=== PATIENT | male | born 1965 | race African-American/Black ===

== ENCOUNTER 2016-04-01 21:20 | Emergency (ER) | payer MEDICAID, SELFPAY ==
[~2016-04-01] VITALS: Ht 172.7 cm; Wt 79.4 kg
[~2016-04-01 21:20] MED LIST: BACTRIM DS TAB1 EAC1 ORAL; IBUPROFEN800 MG ORAL; NORCO 5-325 TA1 EACH ORAL
[2016-04-01 21:36] VITALS: BP 134/77
--- NOTE | 2016-04-01 21:41 | Emergency Room Report ---
History of Present Illness General Chief Complaint: Overdose Source: EMS Present Illness HPI Patient is a 50-year-old male who presented by ambulance after altered level of consciousness. The patient reportedly markedly agitated and had been given IM Versed prior to arrival. Patient reportedly had been combative he was initially awake and responsive. History markedly limited by patient's mental status. Allergies: Coded Allergies: No Known Allergies (Unverified , 12/07/11) Patient History Past Medical History: see triage record Reviewed Nursing Documentation: PMH: Agreed, PSxH: Agreed Nursing Documentation-PMH Past Medical History: No Stated History Review of Systems All Other Systems: limited - by ams Physical Exam Vital Signs Date Time Temp Pulse Resp B/P Pulse Ox O2 Delivery O2 Flow Rate FiO2 04/01/16 21:20 98.2 106 16 136/98 99 Room Air Sp02 EP Interpretation: reviewed, normal General Appearance: other - poor alertness Head: atraumatic Eyes: bilateral eye other - pinpoint pupils ENT: normal ENT inspection, hearing grossly normal, normal voice Neck: normal inspection, full range of motion, supple, no bony tend Respiratory: normal inspection, lungs clear, normal breath sounds, no respiratory distress, no retraction, no wheezing Cardiovascular #1: regular rate, rhythm, no edema Gastrointestinal: normal inspection, normal bowel sounds, non tender, soft, no guarding, no hernia Genitourinary: no CVA tenderness Psychiatric: normal inspection, judgement/insight normal, mood/affect normal Skin: normal inspection, normal color, no rash Medical Decision Making Diagnostic Impression: Primary Impression: Substance abuse Additional Impression: Drug overdose ER Course Patient presented for altered mental status. Differential diagnosis included but was not limited to ischemic stroke, subarachnoid hemorrhage, hypoglycemia, spinal cord injury, neurodegenerative disorder, urinary tract infection, hypoxemia.Because of complexity of patient's case laboratory testing and imaging studies were ordered. The patient was noted to have initially pinpoint pupils adequate respiratory rate. Patient was started on supplemental oxygen. He was not given Narcan do to prior agitation.Patient was observed in the emergency department and gradual improvement in his mental status. The patient was noted to have increased alertness after observation and was able ambulatory without assistance. The patient stated that he wanted to go home. The patient denied any suicidal thoughts and stated he did not know why he was in emergency department. The patient stated that he was not hallucinating and had a good plan for self care.The patient is advised to follow up with primary care doctor in 1-2 days. Patient is advised to return if any worsening condition or if any changes in status that are concerning. Labs Test 04/01/16 21:44 White Blood Count 11.7 K/UL (4.8-10.8) Red Blood Count 4.09 M/UL (4.70-6.10) Hemoglobin 13.2 G/DL (14.2-18.0) Hematocrit 39.7 % (42.0-52.0) Mean Corpuscular Volume 97 FL (80-99) Mean Corpuscular Hemoglobin 32.4 PG (27.0-31.0) Mean Corpuscular Hemoglobin Concent 33.4 G/DL (32.0-36.0) Red Cell Distribution Width 12.8 % (11.6-14.8) Platelet Count 275 K/UL (150-450) Mean Platelet Volume 6.5 FL (6.5-10.1) Neutrophils (%) (Auto) 86.2 % (45.0-75.0) Lymphocytes (%) (Auto) 6.3 % (20.0-45.0) Monocytes (%) (Auto) 6.3 % (1.0-10.0) Eosinophils (%) (Auto) 0.3 % (0.0-3.0) Basophils (%) (Auto) 0.9 % (0.0-2.0) Sodium Level 140 mEQ/L (135-145) Potassium Level 3.7 mEQ/L (3.4-4.9) Chloride Level 98 mEQ/L (98-107) Carbon Dioxide Level 25 mEQ/L (20-30) Anion Gap 17 (5-15) Blood Urea Nitrogen 20 mg/dL (7-23) Creatinine 1.1 mg/dL (0.7-1.2) Estimat Glomerular Filtration Rate > 60 mL/min (>60) Glucose Level 178 mg/dL (74-106) Calcium Level 9.1 mg/dL (8.6-10.2) Total Bilirubin 0.2 mg/dL (0.0-1.2) Aspartate Amino Transf (AST/SGOT) 28 U/L (5-40) Alanine Aminotransferase (ALT/SGPT) 17 U/L (3-41) Alkaline Phosphatase 88 U/L (40-129) Troponin I < 0.30 ng/mL (<=0.30) Total Protein 6.5 g/dL (6.6-8.7) Albumin 4.0 g/dL (3.5-5.2) Globulin 2.5 g/dL Albumin/Globulin Ratio 1.6 (1.0-2.7) Urine Opiates Screen Negative (NEGATIVE) Urine Barbiturates Screen Negative (NEGATIVE) Phencyclidine (PCP) Screen Positive (NEGATIVE) Urine Amphetamines Screen Negative (NEGATIVE) Urine Benzodiazepines Screen Positive (NEGATIVE) Urine Cocaine Screen Negative (NEGATIVE) Urine Marijuana (THC) Screen Positive (NEGATIVE) Last Vital Signs Date Time Temp Pulse Resp B/P Pulse Ox O2 Delivery O2 Flow Rate FiO2 04/01/16 21:20 98.2 106 16 136/98 99 Room Air Status: improved Disposition: HOME, SELF-CARE Condition: Stable Referrals: [facility]REFERRING (PCP) Derrikc Mcnally Apr 01, 2016 21:41
[2016-04-01 22:14] LABS: MEAN CORPUSCULAR HEMOGLOBIN 32.4 PG (27.0-31.0); MEAN CORPUSCULAR HGB CONC 33.4 G/DL (32.0-36.0); MEAN CORPUSCULAR VOLUME 97 FL (80-99); MEAN PLATELET VOLUME 6.5 FL (6.5-10.1); PLATELET COUNT 275 K/UL (150-450); RED BLOOD COUNT 4.09 M/UL (4.70-6.10); RED CELL DISTRIBUTION WIDTH 12.8 % (11.6-14.8); WHITE BLOOD COUNT 11.7 K/UL (4.8-10.8)
[2016-04-01 22:27] LABS: BASOPHILS % (AUTO) 0.9 % (0.0-2.0); EOSINOPHILS % (AUTO) 0.3 % (0.0-3.0); LYMPHOCYTES % (AUTO) 6.3 % (20.0-45.0); MONOCYTES % (AUTO) 6.3 % (1.0-10.0); NEUTROPHILS % (AUTO) 86.2 % (45.0-75.0)
[2016-04-01 22:30] LABS: TROPONIN I < 0.30 ng/mL (<=0.30)
[2016-04-01 22:33] LABS: ALANINE AMINOTRANSFERASE 17 U/L (3-41); ALBUMIN/GLOBULIN RATIO 1.6 (1.0-2.7); ANION GAP 17 (5-15); ASPARTATE AMINO TRANSFERASE 28 U/L (5-40); CALCIUM 9.1 mg/dL (8.6-10.2); CARBON DIOXIDE 25 mEQ/L (20-30); CHLORIDE 98 mEQ/L (98-107); CREATININE 1.1 mg/dL (0.7-1.2); GLOMERULAR FILTRATION RATE > 60 mL/min (>60); HEMOLYSIS 7; POTASSIUM 3.7 mEQ/L (3.4-4.9); SODIUM 140 mEQ/L (135-145); TOTAL PROTEIN 6.5 g/dL (6.6-8.7)
[2016-04-01 23:35] VITALS: BP 116/62
[2016-04-02 01:15] VITALS: BP_SYST 128; BP_DIAS 65; BP_DIAS 76
--- NOTE | 2016-04-02 09:22 | Diagnostic Imaging Report ---
Indications: Altered mental status Technique: Continuous helical CT imaging of the brain was performed with automatic exposure control on a Siemens sensation [address] scanner. Axial and coronal images were reconstructed at 5 mm slice thickness and interval. CTDI volume(s): 70 mGy Total DLP: 1416 mGy-cm Findings: Comparison: None. Motion artifact substantially degrades all images.. No evidence of mass or hemorrhage, other attenuation abnormality, mass effect, midline shift, hydrocephalus or increased intracranial pressure. Bone window images are unremarkable. Polypoid soft tissue densities bilateral maxillary sinuses. Remainder visualized paranasal sinuses and mastoid air cells are clear. IMPRESSION: Bilateral maxillary sinus polyps versus retention cysts Otherwise negative noncontrast CT scan of the brain , limited as described. This correlates with [facility] preliminary report. The CT scanner at [facility] is accredited by the [employer] and the scans are performed using protocols designed to limit radiation exposure to as low as reasonably achievable to attain images of sufficient resolution adequate for diagnostic evaluation.
--- NOTE | 2016-04-02 11:54 | Diagnostic Imaging Report ---
Indication: Shortness of breath Technique: Single portable AP view of the chest. Findings: Comparison: None. Of optimal inspiration limits evaluation. Apparent nodular soft tissue prominence in the regions of the azygos vein, right hilum. The bones and extra pulmonary soft tissues, cardiomediastinal silhouette, pulmonary vasculature and parenchyma, and pleural surfaces are otherwise unremarkable. IMPRESSION: Soft tissue prominence right paratracheal mediastinum and right hilum may simply represent prominent vasculature. Superimposed masses not excludable. Upright PA and lateral chest radiographs with better inspiratory effort and optimal technique recommended for more complete evaluation. Otherwise negative portable AP chest. Written discrepancy report sent to emergency Department via PACS at time of this dictation.
--- NOTE | 2016-04-05 15:53 | Cardiology Report ---
APPROVED REPORT EKG Measurement Heart [id number] Normal sinus rhythm Normal ECG
== END 2016-04-02 01:15 | disposition home or self-care (01) ==
LOC: EDBD 21:20 → EMR 21:31
DX: F19.10 Other psychoactive substance abuse, uncomplicated (principal); T50.901A Poisoning by unspecified drugs, medicaments and biological substances, accidental (unintentional), initial encounter; R41.82 Altered mental status, unspecified; Y92.89 Other specified places as the place of occurrence of the external cause
CPT/HCPCS: 36415; 70450; 71010; 80053; 80300; 84484; 85025; 93005; 96360

== ENCOUNTER 2017-09-22 11:26 | Emergency (ER) | payer MEDICAID ==
[~2017-09-22] VITALS: Ht 175.3 cm; Wt 81.6 kg
[2017-09-22 12:14] VITALS: BP 131/88
[2017-09-22] MEDS ORDERED: Norco 5mg/325mg tab ORAL ONE (12:15)
--- NOTE | 2017-09-22 13:56 | Diagnostic Imaging Report ---
Indication: Pain right ankle ankle pain/trauma Comparison: None Findings: 3 views of the right ankle obtained. There is irregularity of the posterior malleolus with apparent periosteal elevation. This appears to be a fracture but to be old. Correlate clinically. There is no malalignment the findings seen. Some soft tissue swelling is present along the lateral part of the ankle. IMPRESSION: Irregularity of the posterior malleolus possibly due to a fracture. This is age indeterminate. Suggest repeat or CT
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
--- NOTE | 2017-09-22 13:59 | Diagnostic Imaging Report ---
Indication: Pain Knee pain/trauma 3 views of the right knee were obtained. Findings: No acute fracture, malalignment, or joint effusion are identified. Joint space is relatively well-maintained. Impression: Negative for acute findings.
--- NOTE | 2017-09-22 14:09 | Diagnostic Imaging Report ---
Indication: Chest pain and trauma. Comparison: None Findings: 4 views of the right chest wall was obtained for evaluation of the ribs. There is unusual lateral displacement of costal cartilage along the lower lateral aspect of the ribs. The bones appear intact. There is no pneumothorax or evidence of a pleural effusion. IMPRESSION: Suspected costochondral cartilage injury with displacement involving the right lower ribs 8 and 9. Correlate clinically.
[2017-09-22] MEDS ORDERED: IBUPROFEN600 MG ORAL (14:14)
[2017-09-22] MEDS ORDERED: NORCO 5-325 TA1 EACH ORAL (14:14)
[2017-09-22 14:23] VITALS: BP 131/88
== END 2017-09-22 14:24 | disposition home or self-care (01) ==
LOC: EMR 12:15
DX: S82.891A Other fracture of right lower leg, initial encounter for closed fracture (principal); S83.91XA Sprain of unspecified site of right knee, initial encounter; S20.219A Contusion of unspecified front wall of thorax, initial encounter; Y04.2XXA Assault by strike against or bumped into by another person, initial encounter; Y92.9 Unspecified place or not applicable
CPT/HCPCS: 99284

== ENCOUNTER 2018-05-30 03:50 | Emergency (ER) | payer MEDICAID ==
[~2018-05-30] VITALS: Ht 175.3 cm; Wt 86.2 kg
[~2018-05-30 03:50] MED LIST changes: +IBUPROFEN600 MG ORAL
[2018-05-30] MEDS ORDERED: NKM (04:04)
[2018-05-30 04:09] VITALS: BP 136/92
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
[2018-05-30] MEDS ORDERED: Acetaminophen 500mg (ES) tab ORAL ONE (04:15)
--- NOTE | 2018-05-30 04:20 | NUR ---
ED Nurse Note: pt went to ct with tech
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
--- NOTE | 2018-05-30 04:36 | NUR ---
ED Nurse Note: pt went back from ct with tech.
[2018-05-30] MEDS ORDERED: ACETAMINOPHEN500 M3 ORAL (05:37)
[2018-05-30 05:40] VITALS: BP 136/92
--- NOTE | 2018-05-30 05:40 | NUR ---
ER DISCHARGE NOTE: Patient is cleared to be discharged per ERMD, pt is aox4, on room air, with stable vital signs. pt was given dc and prescription instructions, pt was able to verbalize understanding, pt id band removed without complications. pt is able to ambulate with steady gait. pt took all belongings.
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
== END 2018-05-30 05:40 | disposition home or self-care (01) ==
LOC: EMR 05:00
DX: S00.93XA Contusion of unspecified part of head, initial encounter (principal); Y04.2XXA Assault by strike against or bumped into by another person, initial encounter; Y92.9 Unspecified place or not applicable; H91.92 Unspecified hearing loss, left ear
CPT/HCPCS: 70450; 99284

== ENCOUNTER 2019-12-27 06:37 | Inpatient (IN) | payer MEDICAID ==
[~2019-12-27] VITALS: Ht 175.3 cm; Wt 79.2 kg
[2019-12-27] VITALS (7 sets, daily range): BP systolic 124–145; BP diastolic 61–95
[~2019-12-27 06:37] MED LIST changes: +ACETAMINOPHEN500 M3 ORAL; +NKM
--- NOTE | 2019-12-27 07:15 | NUR ---
ED Nurse Note: Patient from home and walked in due to dizziness x 2 weeks. Pt states that he is "dehydrated.". Denies CP upon ED arrival. AAO x4, follows commands with non labored breathing.
--- NOTE | 2019-12-27 07:24 | Emergency Room Report ---
History of Present Illness General Chief Complaint: Dizziness Source: Patient Present Illness HPI 54-year-old male, no past medical history no surgical history reports over the past 2 weeks has been feeling lightheaded, like he is going to pass out, he denies any aggravating relieving factors severity is moderate, intermittent denies any chest pain shortness of breath no nausea no vomiting, patient thinks he is dehydrated he also reports having hard stools, patient presents for evaluation and treatment no family history of early sudden cardiac Allergies: Coded Allergies: No Known Allergies (Unverified , 12/07/11) COVID-19 Screening Contact w/high risk pt: No Experienced COVID-19 symptoms?: No COVID-19 Testing performed CHEMICAL INSTRUMENTATION OFFICER: No Patient History Past Medical History: see triage record Reviewed Nursing Documentation: PMH: Agreed; PSxH: Agreed Nursing Documentation-PMH Past Medical History: No Stated History Review of Systems All Other Systems: negative except mentioned in HPI Physical Exam Vital Signs Date Time Temp Pulse Resp B/P (MAP) Pulse Ox O2 Delivery O2 Flow Rate FiO2 12/27/19 06:55 98.4 74 20 142/102 (115) 98 Sp02 EP Interpretation: reviewed, normal General Appearance: well appearing, no apparent distress, alert Head: normocephalic, atraumatic Eyes: bilateral eye PERRL, bilateral eye EOMI ENT: uvula midline, moist mucus membranes Neck: supple, thyroid normal, supple/symm/no masses Respiratory: lungs clear, no respiratory distress, no retraction, no accessory muscle use Cardiovascular #1: normal peripheral pulses, regular rate, rhythm, no edema, no gallop, no murmur Gastrointestinal: non tender, soft, no guarding, no rebound Musculoskeletal: normal inspection Neurologic: alert, oriented x3 Psychiatric: mood/affect normal Skin: no rash, warm/dry Medical Decision Making Diagnostic Impression: Primary Impression: Pre-syncope Additional Impressions: Dehydration Colitis ER Course 54-year-old male presents with vague complaints of presyncopal symptoms, differential includes arrhythmia, syncope, dehydration Troponin negative, x-ray negative EKG negative, patient rehydrated with 2 L of fluids patient felt better additionally patient found to have a colitis on CT patient will be started on ceftriaxone, metronidazole Patient admitted to Dr. Enriquez Laboratory Tests Test 12/27/19 07:19 White Blood Count 6.1 K/UL (4.8-10.8) Red Blood Count 4.41 M/UL (4.70-6.10) L Hemoglobin 14.5 G/DL (14.2-18.0) Hematocrit 41.0 % (42.0-52.0) L Mean Corpuscular Volume 93 FL (80-99) Mean Corpuscular Hemoglobin 32.8 PG (27.0-31.0) H Mean Corpuscular Hemoglobin Concent 35.2 G/DL (32.0-36.0) Red Cell Distribution Width 11.7 % (11.6-14.8) Platelet Count 299 K/UL (150-450) Mean Platelet Volume 6.1 FL (6.5-10.1) L Neutrophils (%) (Auto) 61.4 % (45.0-75.0) Lymphocytes (%) (Auto) 24.1 % (20.0-45.0) Monocytes (%) (Auto) 9.0 % (1.0-10.0) Eosinophils (%) (Auto) 2.8 % (0.0-3.0) Basophils (%) (Auto) 2.7 % (0.0-2.0) H Sodium Level 135 MMOL/L (136-145) L Potassium Level 4.0 MMOL/L (3.5-5.1) Chloride Level 101 MMOL/L (98-107) Carbon Dioxide Level 29 MMOL/L (21-32) Anion Gap 6 mmol/L (5-15) Blood Urea Nitrogen 13 mg/dL (7-18) Creatinine 1.0 MG/DL (0.55-1.30) Estimated Glomerular Filtration Rate > 60 mL/min (>60) Glucose Level 110 MG/DL (74-106) H Calcium Level 8.6 MG/DL (8.5-10.1) Total Bilirubin 0.4 MG/DL (0.2-1.0) Aspartate Amino Transferase (AST) 36 U/L (15-37) Alanine Aminotransferase (ALT) 40 U/L (12-78) Alkaline Phosphatase 86 U/L (46-116) Troponin I 0.000 ng/mL (0.000-0.056) Pro-B-Type Natriuretic Peptide 27 pg/mL (0-125) Total Protein 6.1 G/DL (6.4-8.2) L Albumin 3.3 G/DL (3.4-5.0) L Globulin 2.8 g/dL Albumin/Globulin Ratio 1.2 (1.0-2.7) Lipase 186 U/L (73-393) EKG Diagnostic Results Troponin ordered: Yes When was troponin ordered?: Dec 27, 2019 - 708 EKG Time: 07:22 EP Interpretation: NSR, rate 64, QTc 431, no acute ST elevations, normal axis Rhythm Strip Diag. Results Rhythm Strip Time: 07:23 EP Interpretation: yes Rate: 71 Rhythm: NSR, no PVC's, no ectopy Chest X-Ray Diagnostic Results Chest X-Ray Diagnostic Results : Chest X-Ray Ordered: Yes # of Views/Limited/Complete: 1 View Indication: Chest Pain EP Interpretation: Yes Interpretation: no consolidation, no effusion, no pneumothorax, no acute cardiopulmonary disease Impression: No acute disease Electronically Signed by: Antonio Vivar MD Last Vital Signs Date Time Temp Pulse Resp B/P (MAP) Pulse Ox O2 Delivery O2 Flow Rate FiO2 12/27/19 06:55 98.4 74 20 142/102 (115) 98 Disposition: ADMITTED INPATIENT Condition: Stable Referrals: NOT CHOSEN IPA/,REFERRING (PCP) Antonio Vivar MD Dec 27, 2019 07:24
--- NOTE | 2019-12-27 07:24 | NUR ---
ED Nurse Note: Collected blood then sent. Patient unable to provide urine at this time.
--- NOTE | 2019-12-27 07:35 | NUR ---
ED Nurse Note: Rdaiology tech Carlos at the bed side for CXR.
[2019-12-27 07:55] LABS: ANION GAP 6 mmol/L (5-15); BLOOD UREA NITROGEN 13 mg/dL (7-18); CALCIUM 8.6 MG/DL (8.5-10.1); CARBON DIOXIDE 29 MMOL/L (21-32); CHLORIDE 101 MMOL/L (98-107); SODIUM 135 MMOL/L (136-145)
[2019-12-27 08:02] LABS: BASOPHILS % (AUTO) 2.7 % (0.0-2.0); EOSINOPHILS % (AUTO) 2.8 % (0.0-3.0); HEMOGLOBIN 14.5 G/DL (14.2-18.0); LYMPHOCYTES % (AUTO) 24.1 % (20.0-45.0); MEAN CORPUSCULAR VOLUME 93 FL (80-99); NEUTROPHILS % (AUTO) 61.4 % (45.0-75.0); PLATELET COUNT 299 K/UL (150-450); RED BLOOD COUNT 4.41 M/UL (4.70-6.10); RED CELL DISTRIBUTION WIDTH 11.7 % (11.6-14.8); WHITE BLOOD COUNT 6.1 K/UL (4.8-10.8)
[2019-12-27 08:06] LABS: ALANINE AMINOTRANSFERASE 40 U/L (12-78); ALBUMIN 3.3 G/DL (3.4-5.0); ALBUMIN/GLOBULIN RATIO 1.2 (1.0-2.7); ALKALINE PHOSPHATASE 86 U/L (46-116); ASPARTATE AMINO TRANSFERASE 36 U/L (15-37); BILIRUBIN,TOTAL 0.4 MG/DL (0.2-1.0)
--- NOTE | 2019-12-27 08:16 | Diagnostic Imaging Report ---
EXAM: CT Chest Without Intravenous Contrast CLINICAL HISTORY: ABD PAIN TECHNIQUE: Axial computed tomography images of the chest without intravenous contrast. CTDI is 5.3 mGy and DLP is 359.5 mGy-cm. One or more of the following dose reduction techniques were used: automated exposure control, adjustment of the mA and/or kV according to patient size, use of iterative reconstruction technique. COMPARISON: No relevant prior studies available. FINDINGS: Lungs: Calcified granulomas in the right hilum and right mediastinum. Pleural space: Unremarkable. No pneumothorax. No significant effusion. Heart: Unremarkable. No cardiomegaly. No significant pericardial effusion. Bones/joints: Unremarkable. No acute fracture. No dislocation. Soft tissues: Unremarkable. Vasculature: Unremarkable. No thoracic aortic aneurysm. Lymph nodes: Unremarkable. No enlarged lymph nodes. IMPRESSION: No acute findings in the chest. EXAM: CT Abdomen and Pelvis Without Intravenous Contrast CLINICAL HISTORY: ABD PAIN TECHNIQUE: Axial computed tomography images of the abdomen and pelvis without intravenous contrast. CTDI is 5.3 mGy and DLP is 359.5 mGy-cm. One or more of the following dose reduction techniques were used: automated exposure control, adjustment of the mA and/or kV according to patient size, use of iterative reconstruction technique. COMPARISON: No relevant prior studies available. FINDINGS: Lung bases: Unremarkable. No mass. No consolidation. ABDOMEN: Liver: Unremarkable. Gallbladder and bile ducts: Unremarkable. No calcified stones. No ductal dilation. Pancreas: Unremarkable. No ductal dilation. Spleen: Unremarkable. No splenomegaly. Adrenals: Unremarkable. No mass. Kidneys and ureters: Unremarkable. No obstructing stones. No hydronephrosis. Stomach and bowel: There is mural thickening of the colon diffusely consistent with colitis. PELVIS: Appendix: No findings to suggest acute appendicitis. Bladder: Unremarkable. No stones. Reproductive: Unremarkable as visualized. ABDOMEN and PELVIS: Intraperitoneal space: Unremarkable. No free air. No significant fluid collection. Bones/joints: No acute fracture. No dislocation. Soft tissues: Unremarkable. Vasculature: Unremarkable. No abdominal aortic aneurysm. Lymph nodes: Unremarkable. No enlarged lymph nodes. IMPRESSION: Mild colitis.
[2019-12-27] MEDS ORDERED: metroNIDAZOLE 500mg tab ORAL ONE (08:45)
[2019-12-27] MEDS ORDERED: cefTRIAXone 1 GM in NS 55 ML IVPB ONE (08:45)
--- NOTE | 2019-12-27 09:27 | NUR ---
ED Nurse Note: Collected urine then sent.
[2019-12-27 09:37] LABS: APPEARANCE,URINE CLEAR; BILIRUBIN, URINE NEGATIVE (NEGATIVE); COLOR,URINE PALE YELLOW; GLUCOSE, URINE (UA) NEGATIVE (NEGATIVE); KETONES,URINE NEGATIVE (NEGATIVE); LEUKOCYTE ESTERASE ,URINE NEGATIVE (NEGATIVE); NITRITE,URINE NEGATIVE (NEGATIVE); PH,URINE 8 (4.5-8.0); PROTEIN,URINE NEGATIVE (NEGATIVE); UROBILINOGEN,URINE NORMAL MG/DL (0.0-1.0)
--- NOTE | 2019-12-27 15:04 | NUR ---
ED Nurse Note: Report given to Elliot NAGY of telemetry unit.
--- NOTE | 2019-12-27 15:10 | NUR ---
NURSE NOTES: Pt. received from YAKOV Cervantes. Pt. arrived via gurney, ambulated with steady gait to bed, AAOx4, on room air, breathing even and unlabored, no active complaints of pain, no indications of respiratory distress. Vital signs stable, skin intact, pt. able to perform ADLs independently. IV left ac 18g intact and patent, saline locked. Belongings list checked and accounted for. Bed low and locked, side rails x2 up, and call light in reach. Dr. Enriquez notified of patients arrival and orders received.
[2019-12-27] MEDS ORDERED: Acetaminophen 500mg (ES) tab ORAL PRN (15:30)
[2019-12-27] MEDS: D5NS 1,000 ML IV SCH (15:40)
--- NOTE | 2019-12-27 15:45 | NUR ---
NURSE NOTES: Pt. complaints of constipation, Dr. Enriquez notified and received orders for laxatives. Will follow up with plan of care.
[2019-12-27] MEDS ORDERED: Miralax 17gm pkt ORAL PRN (16:00)
--- NOTE | 2019-12-27 16:19 | Cardiology Report ---
APPROVED REPORT EKG Measurement Heart [id number] <Conclusion> Normal sinus rhythm Normal ECG
--- NOTE | 2019-12-27 16:27 | Diagnostic Imaging Report ---
Indication: Cough Technique: One view of the chest Comparison: 04/01/2016 Findings: Lungs and pleural spaces are clear. Heart size is normal. No significant change Impression: No acute process
[2019-12-27] MEDS: Piperacillin/Tazobactam 3.375 GM in NS 110 ML IVPB SCH (17:19)
--- NOTE | 2019-12-27 19:20 | NUR ---
NURSE NOTES: Pt. with loose bowel movement, stool sample collected and set to lab.
[2019-12-27] MEDS: Heparin 5000 units/ml inj SUBQ SCH (20:12)
--- NOTE | 2019-12-27 21:42 | General Progress Note ---
Subjective Allergies: Coded Allergies: No Known Allergies (Unverified , 12/07/11) Objective Last 24 Hour Vital Signs Date Time Temp Pulse Resp B/P (MAP) Pulse Ox O2 Delivery O2 Flow Rate FiO2 12/27/19 21:00 Room Air 12/27/19 16:00 98.2 79 19 131/61 (84) 98 12/27/19 16:00 70 12/27/19 15:22 Room Air 12/27/19 15:13 98.2 75 16 127/80 99 Room Air 12/27/19 13:45 97.7 81 17 130/87 100 Room Air 12/27/19 11:35 98.6 79 15 130/87 100 Room Air 12/27/19 09:25 98.2 85 16 144/93 99 Room Air 12/27/19 09:00 97.9 82 17 145/90 99 Room Air 12/27/19 07:20 74 20 Room Air 12/27/19 07:20 98.4 78 20 124/95 98 12/27/19 06:55 98.4 74 20 142/102 (115) 98 Laboratory Tests 12/27/19 07:19: White Blood Count 6.1, Red Blood Count 4.41L, Hemoglobin 14.5, Hematocrit 41.0L, Mean Corpuscular Volume 93, Mean Corpuscular Hemoglobin 32.8H, Mean Corpuscular Hemoglobin Concent 35.2, Red Cell Distribution Width 11.7, Platelet Count 299, Mean Platelet Volume 6.1L, Neutrophils (%) (Auto) 61.4, Lymphocytes (%) (Auto) 24.1, Monocytes (%) (Auto) 9.0, Eosinophils (%) (Auto) 2.8, Basophils (%) (Auto) 2.7H, Sodium Level 135L, Potassium Level 4.0, Chloride Level 101, Carbon Dioxide Level 29, Anion Gap 6, Blood Urea Nitrogen 13, Creatinine 1.0, Estimat Glomerular Filtration Rate > 60, Glucose Level 110H, Calcium Level 8.6, Total Bilirubin 0.4, Aspartate Amino Transf (AST/SGOT) 36, Alanine Aminotransferase (ALT/SGPT) 40, Alkaline Phosphatase 86, Troponin I 0.000, Pro-B-Type Natriuretic Peptide 27, Total Protein 6.1L, Albumin 3.3L, Globulin 2.8, Albumin/Globulin Ratio 1.2, Lipase 186 12/27/19 09:25: Urine Color Pale yellow, Urine Appearance Clear, Urine pH 8, Urine Specific [place] 1.010, Urine Protein Negative, Urine Glucose (UA) Negative, Urine Ketones Negative, Urine Blood Negative, Urine Nitrite Negative, Urine Bilirubin Negative, Urine Urobilinogen Normal, Urine Leukocyte Esterase Negative, Urine Opiates Screen Negative, Urine Barbiturates Screen Negative, Phencyclidine (PCP) Screen PositiveH, Urine Amphetamines Screen Negative, Urine Benzodiazepines Screen Negative, Urine Cocaine Screen Negative, Urine Marijuana (THC) Screen PositiveH Height (Feet): 5 Height (Inches): 9.00 Weight (Pounds): 180 Assessment/Plan Assessment/Plan: Assessment Constipation vague abdominal complaints minimal anemia sycope vs presyncope Recommendations laxatives push po outpatient colonoscopy Thank you MD Ajith Borden Payman MD Dec 27, 2019 21:42
--- NOTE | 2019-12-27 23:30 | Consultation ---
DATE OF CONSULTATION: 12/27/2019 GASTROLOGY CONSULTATION CHIEF COMPLAINT: I was asked to see this patient by Dr. Shelton Enriquez for evaluation of abdominal complaints. HISTORY OF PRESENT ILLNESS: The patient is a 54-year-old man without any significant past medical history, who comes into the hospital due to feeling that he is passing out or feeling lightheaded or dizzy. The patient also states he has had some difficulty having bowel movements. He says that the stools alternate between hard and soft. He has had no nausea, vomiting, or diarrhea. He has never had a colonoscopy. CT scan of the abdomen and pelvis shows some mild thickening in the colon. PAST MEDICAL HISTORY: Otherwise negative. FAMILY HISTORY: Noncontributory. SOCIAL HISTORY: The patient does not smoke or drink alcohol. He is single. MEDICATIONS: None. REVIEW OF SYSTEMS: Otherwise negative. PHYSICAL EXAMINATION: GENERAL: A well-developed, well-nourished man, seen in his room. HEENT: Normocephalic and atraumatic. Sclerae anicteric. Oropharynx is clear. NECK: Supple. CHEST: Clear to auscultation. CARDIAC: Exam revealed a regular rate. ABDOMEN: Soft and nontender without organomegaly. EXTREMITIES: No edema. LABORATORY DATA: Noted. ASSESSMENT: This patient presents with lightheaded and presyncopal symptoms, which can be addressed from a cardiac standpoint. His abdominal complaints are somewhat vague and it appeared he just may have some degree of constipation. However, he has not had w/u since anemic; and therefore, evaluation should be done once the patient has been cleared from a cardiovascular standpoint. The colonoscopy can be done as an outpatient to assess this. In the meantime, a bowel regimen should be given to help the patient to have regular bowel movements. RECOMMENDATIONS: Per above discussion and per orders in the chart. Thank you for asking me to participate in the care of this patient. Aurelio Canseco M.D. DR: RODRÍGUEZ JOB#: [id number] CC: MURPHY
[2019-12-28] VITALS: BP 124/81
[2019-12-28] MEDS: Piperacillin/Tazobactam 3.375 GM in NS 110 ML IVPB SCH ×3 (02:05→18:00)
[2019-12-28] MEDS: D5NS 1,000 ML IV SCH ×3 (02:05→21:33)
--- NOTE | 2019-12-28 02:56 | NUR ---
NURSE HAND-OFF REPORT: Important Events on Shift:[pt. with bowel movement, c. diff is negative] Patient Status: sleeping Diet: regular Pending Orders: [na] Pending Results/Labs:bmp cbc Pending MD notification:pt. concerned with gastric problems and wants a work up Latest Vital Signs: Temperature 97.9 , Pulse 76 , B/P 124 /81 , Respiratory Rate 18 , O2 SAT 97 , Room Air, O2 Flow Rate . Vital Sign Comment: stable EKG Rhythm: Sinus Rhythm Rhythm change?: N MD Notified?: - MD Response: Latest [place] Fall Score: 30 Fall Risk: Medium Risk Safety Measures: Call light Within Reach, Bed Alarm , Side Rails Side Rails x2, Bed position Low and Locked. Fall Precautions: Patient Fall Education Report given to YAKOV Saunders.
[2019-12-28 04:00] VITALS: BP 123/84
[2019-12-28 07:22] LABS: BASOPHILS % (AUTO) 1.2 % (0.0-2.0); HEMOGLOBIN 13.6 G/DL (14.2-18.0); LYMPHOCYTES % (AUTO) 24.3 % (20.0-45.0); MEAN CORPUSCULAR VOLUME 94 FL (80-99); MONOCYTES % (AUTO) 7.1 % (1.0-10.0); NEUTROPHILS % (AUTO) 64.4 % (45.0-75.0); PLATELET COUNT 314 K/UL (150-450); RED BLOOD COUNT 4.13 M/UL (4.70-6.10); RED CELL DISTRIBUTION WIDTH 12.3 % (11.6-14.8); WHITE BLOOD COUNT 5.1 K/UL (4.8-10.8)
--- NOTE | 2019-12-28 07:24 | NUR ---
NURSE NOTES: Received report from YAKOV Zarate. Pt A/O x4 ambulatory and on room air. No SOB or acute distress. No pain noted. Pt is continent of B/B and independent of ADL's. Pt had a IV left AC 18G D5NS @ 100ml/hr. Bed low and locked, side rails x2 up, and call light in reach. Will continue plan of care.
--- NOTE | 2019-12-28 07:39 | NUR ---
NURSE HAND-OFF REPORT: Important Events on Shift:[] Patient Status: [] Diet: [Regular diet] Pending Orders: [] Pending Results/Labs:[] Pending MD notification:[] Latest Vital Signs: Temperature 97.9 , Pulse 74 , B/P 123 /84 , Respiratory Rate 18 , O2 SAT 97 , Room Air, O2 Flow Rate . Vital Sign Comment: [] EKG Rhythm: Sinus Rhythm Rhythm change?: N MD Notified?: - MD Response: Latest [place] Fall Score: 30 Fall Risk: Medium Risk Safety Measures: Call light Within Reach, Bed Alarm , Side Rails Side Rails x2, Bed position Low and Locked. Fall Precautions: Patient Fall Education Report given to [YAKOV Chawla].
--- NOTE | 2019-12-28 07:50 | NUR ---
NURSE NOTES: spoke with Dr Enriquez and gave order okay to transfer pt to med surg.
[2019-12-28 08:00] VITALS: BP 118/76
[2019-12-28 08:02] LABS: ALANINE AMINOTRANSFERASE 38 U/L (12-78); ALKALINE PHOSPHATASE 77 U/L (46-116); ANION GAP 9 mmol/L (5-15); ASPARTATE AMINO TRANSFERASE 25 U/L (15-37); BILIRUBIN,TOTAL 0.4 MG/DL (0.2-1.0); BLOOD UREA NITROGEN 9 mg/dL (7-18); CALCIUM 8.2 MG/DL (8.5-10.1); CARBON DIOXIDE 25 MMOL/L (21-32); CHLORIDE 107 MMOL/L (98-107); SODIUM 141 MMOL/L (136-145)
--- NOTE | 2019-12-28 08:45 | History and Physical Report ---
DATE OF ADMISSION: 12/27/2019 CHIEF COMPLAINT: Dizziness. HISTORY OF PRESENT ILLNESS: The patient is a 54-year-old male, no past medical history, who presents with complaints of feeling dizzy. The patient is upset that his mother recently . She apparently had metastatic cancer and is worried and wants to be screened. He has had mild constipation, but denies any fevers or chills. No cough. No ill contacts. No recent travel. On evaluation in the emergency room, labs were unremarkable. He was positive for PCP and marijuana. His sodium was slightly low at 135. He has now been admitted for further evaluation and care. PAST MEDICAL HISTORY: None. PAST SURGICAL HISTORY: None. CURRENT MEDICATIONS: None. FAMILY HISTORY: Significant for cancer. SOCIAL HISTORY: The patient smokes marijuana. Denies any alcohol or smoking. REVIEW OF SYSTEMS: Negative except for some dizziness. PHYSICAL EXAMINATION: VITAL SIGNS: Temperature 98.7, pulse 76, respirations 18, and blood pressure 124/81. GENERAL: The patient is well-developed, no apparent distress. HEART: Regular rate and rhythm. LUNGS: Clear. ABDOMEN: Soft. EXTREMITIES: Without clubbing, cyanosis, or edema. DIAGNOSTIC DATA: CT scan of the abdomen showed mild colitis. CAT scan results have been reviewed with the patient. He has been told that he is extremely unlikely that there are no signs of any cancer on the CAT scan. ASSESSMENT: This is a 54-year-old male, admitted with complaints of dizziness and dehydration, questionable colitis, although the patient has no symptoms. PLAN: CT scan of the head. Gentle hydration. Discharge planning. recommended follow up with his outpatient primary care physician. Shelton Enriquez M.D. DR: KATHI JOB#: [id number] CC:
[2019-12-28] MEDS: Heparin 5000 units/ml inj SUBQ SCH ×2 (09:06→21:34)
[2019-12-28 12:00] VITALS: BP 125/74
--- NOTE | 2019-12-28 12:00 | NUR ---
NURSE NOTES: Patient received from Tele 207-1 to 321-1 via bed on RA, in stable condition. Respirations even/unlabored. Denies pain, SOB, NV. IV D5 NS at 100 ml/hr and Zosyn IV infusing to LAC, site asymptomatic, on IV pump. Oriented patient to room/call light and surroundings, verbalized understanding. All belongings with patient, reviewed/signed. Call light in reach, bed in lowest position, will continue to monitor. Addendum: 12/28/19 at 1850 by April Moy RN Report received from Jadyn NAGY from [employer].
--- NOTE | 2019-12-28 12:03 | NUR ---
NURSES NOTES: Transferred pt to 321-1 and report given to YAKOV Chen. Pt in stable condition. Endorsed plan of care.
--- NOTE | 2019-12-28 12:21 | NUR ---
CASE MANAGEMENT:INITIAL REVIEW 54 YR OLD MALE FROM HOME CC;DIZZINESS SI;PRESYNCOPE. COLITIS. DEHYDRATION. 98.4 85 20 145/90 98% ON RA NA 135 ALB 3.3 UA NEGATIVE URINE TOX (+) THC, PHENCYCLIDINE COVID RAPID - NEGATIVE CXR ~ NO ACUTE PROCESS CHEST/ABD/PELVIS CT ~ No acute findings IS;IVF NS BOLUS X2 ROCEPHIN IV FLAGYL PO ADMITTED TO TELE 12/27/19 TRANSFERRED FROM TELE TO MED SURG ON 12/28/19 MED SURG STATUS DCP;FROM HOME
[2019-12-28 16:00] VITALS: BP 133/82
[2019-12-28] MEDS ORDERED: D5NS 1000ml IV ONE (18:07)
[2019-12-28] MEDS ORDERED: Tubing IV Secondary IV ONE (18:07)
[2019-12-28] MEDS ORDERED: NS 275ml ONE (18:07)
--- NOTE | 2019-12-28 19:32 | General Progress Note ---
Subjective Allergies: Coded Allergies: No Known Allergies (Unverified , 12/07/11) Subjective did have a BM feels better wants more IV hydration wants to leave Monday Objective Last 24 Hour Vital Signs Date Time Temp Pulse Resp B/P (MAP) Pulse Ox O2 Delivery O2 Flow Rate FiO2 12/28/19 16:00 98.4 66 18 133/82 (99) 99 12/28/19 12:00 97.9 72 20 125/74 (91) 97 12/28/19 12:00 74 12/28/19 09:00 Room Air 12/28/19 08:00 70 12/28/19 08:00 97.7 76 20 118/76 (90) 97 12/28/19 04:00 79 12/28/19 04:00 97.9 74 18 123/84 (97) 97 12/28/19 00:00 97.9 76 18 124/81 (95) 97 12/28/19 00:00 76 12/27/19 21:00 Room Air 12/27/19 20:00 92 12/27/19 20:00 97.3 92 18 128/75 (92) 97 Intake and Output 12/27/19 12/28/19 19:00 07:00 Intake Total 2510.0 ml 655.0 ml Output Total 250 ml Balance 2260.0 ml 655.0 ml Intake Oral 300 ml IV Total 2210.0 ml 655.0 ml Output Urine Total 250 ml # Voids 1 # Bowel Movements 1 Laboratory Tests 12/28/19 06:00: White Blood Count 5.1, Red Blood Count 4.13L, Hemoglobin 13.6L, Hematocrit 39.0L , Mean Corpuscular Volume 94, Mean Corpuscular Hemoglobin 33.0H, Mean Corpuscular Hemoglobin Concent 34.9, Red Cell Distribution Width 12.3, Platelet Count 314, Mean Platelet Volume 5.7L, Neutrophils (%) (Auto) 64.4, Lymphocytes (%) (Auto) 24.3, Monocytes (%) (Auto) 7.1, Eosinophils (%) (Auto) 3.0, Basophils (%) (Auto) 1.2, Sodium Level 141, Potassium Level 4.0, Chloride Level 107, Carbon Dioxide Level 25, Anion Gap 9, Blood Urea Nitrogen 9, Creatinine 1.0, Estimat Glomerular Filtration Rate > 60, Glucose Level 119H, Calcium Level 8.2L, Total Bilirubin 0.4, Aspartate Amino Transf (AST/SGOT) 25, Alanine Aminotransferase (ALT/SGPT) 38, Alkaline Phosphatase 77, Total Protein 6.1L, Albumin 3.0L, Globulin 3.1, Albumin/Globulin Ratio 1.0, Carcinoembryonic Antigen [Pending], CA 19-9 Antigen [Pending], Prostate Specific Antigen 0.56 Height (Feet): 5 Height (Inches): 9.00 Weight (Pounds): 180 Objective WDWN NCAT supple CTA RRR abd Soft no edema Assessment/Plan Assessment/Plan: Assessment Constipation - resolved vague abdominal complaints minimal anemia sycope vs presyncope Recommendations laxatives PRN push po OK for discharge from GI standpoint outpatient colonoscopy Aurelio Canseco MD Dec 28, 2019 19:32
--- NOTE | 2019-12-28 19:45 | NUR ---
NURSE HAND-OFF: Important Events on Shift:Tele transfer received at 1200 Patient Status: stable Diet: regular Pending Orders: none Pending Results/Labs:CT head Pending MD notification:none Latest Vital Signs: Temperature 98.4 , Pulse 66 , B/P 133 /82 , Respiratory Rate 18 , O2 SAT 99 , Room Air, O2 Flow Rate . Vital Sign Comment: none Latest [place] Fall Score: 30 Fall Risk: Medium Risk Safety Measures: Call light Within Reach, Bed Alarm , Side Rails Side Rails x2, Bed position Low and Locked. Fall Precautions: Patient Fall Education Report given to Mckayla NAGY.
[2019-12-28 20:00] VITALS: BP 134/90
--- NOTE | 2019-12-28 20:18 | NUR ---
NURSES NOTE: Pt in bed, A/OX4, denies pain or discomfort at this time. No c/o N/V. No outward s/s of distress noted. Breathing pattern is even and unlabored on RA. IV site R FA is in place infusing IVF without incident. All due medications will be administered. Bed at lowest level, call light within reach. Pt will continue to be monitored.
[2019-12-29] MEDS: Piperacillin/Tazobactam 3.375 GM in NS 110 ML IVPB SCH ×3 (02:55→18:59)
[2019-12-29 04:00] VITALS: BP 148/83
[2019-12-29] MEDS: D5NS 1,000 ML IV SCH ×2 (06:37→19:03)
--- NOTE | 2019-12-29 07:43 | NUR ---
NURSE NOTES: Report received from Mckayla NAGY, rounds made. Patient up to bathroom. Gait steady. AOx4 calm. Respirations even/unlabored. Denies pain, SOB, NV. Appetite fair on regular diet. IV D5 NS at 100 ml/hr infusing to right forearm, site asymptomatic. Call light in reach, bed in lowest position, will continue to monitor.
--- NOTE | 2019-12-29 07:53 | NUR ---
NURSE HAND-OFF: Important Events on Shift:[NONE] Patient Status: [STABLE] Diet: [REGULAR] Pending Orders: [NONE] Pending Results/Labs:[NONE] Pending MD notification:[NONE] Latest Vital Signs: Temperature 97.9 , Pulse 77 , B/P 148 /83 , Respiratory Rate 19 , O2 SAT 96 , Room Air, O2 Flow Rate . Vital Sign Comment: [WNL] Latest [place] Fall Score: 20 Fall Risk: Low Risk Safety Measures: Call light Within Reach, Bed Alarm , Side Rails Side Rails x2, Bed position Low and Locked. Fall Precautions: Patient Fall Education Report given to [YAKOV NGUYEN].
[2019-12-29 08:00] VITALS: BP 141/90
[2019-12-29] MEDS: Heparin 5000 units/ml inj SUBQ SCH ×2 (08:21→22:11)
[2019-12-29] MEDS ORDERED: NS 275ml ONE (08:47)
--- NOTE | 2019-12-29 09:50 | NUR ---
NURSE NOTES: Dr. Enriquez notified of left thumb nail bed, small opening due to work injury. Order received for hydrogen peroxide, BID for treatment, see order. Will update patient.
[2019-12-29 12:00] VITALS: BP 147/93
[2019-12-29] MEDS: Hydrogen Peroxide 473ml Bottle TOPIC SCH ×2 (13:32→18:00)
--- NOTE | 2019-12-29 13:32 | NUR ---
NURSE NOTES: Assisted patient to cleanse and soak his left thumb nail bed in hydrogen peroxide, surrounding nail dried blood, cleaned off, remaining nail surrounding intact, no further bleeding, no bruising, no redness, no swelling. Bandaid applied to cover nail bed.
--- NOTE | 2019-12-29 15:33 | General Progress Note ---
Subjective ROS Limited/Unobtainable: No Constitutional: Reports: no symptoms HEENT: Reports: no symptoms Cardiovascular: Reports: no symptoms Respiratory: Reports: no symptoms Gastrointestinal/Abdominal: Reports: no symptoms Neurologic/Psychiatric: Reports: no symptoms Endocrine: Reports: no symptoms Hematologic/Lymphatic: Reports: no symptoms Allergies: Coded Allergies: No Known Allergies (Unverified , 12/07/11) All Systems: reviewed and negative except above Subjective feels dehydrated. abd pain better. no diarrhea Objective Last 24 Hour Vital Signs Date Time Temp Pulse Resp B/P (MAP) Pulse Ox O2 Delivery O2 Flow Rate FiO2 12/29/19 12:00 98.3 71 20 147/93 (111) 96 12/29/19 09:00 Room Air 12/29/19 08:00 98.3 80 20 141/90 (107) 98 12/29/19 04:00 97.9 77 19 148/83 (104) 96 12/28/19 21:00 Room Air 12/28/19 20:00 97.7 69 18 134/90 (105) 98 12/28/19 16:00 98.4 66 18 133/82 (99) 99 Intake and Output 12/28/19 12/29/19 19:00 07:00 Intake Total 1370 ml 600 ml Balance 1370 ml 600 ml Intake Oral 670 ml 500 ml IV Total 700 ml 100 ml # Voids 3 3 # Bowel Movements 1 Height (Feet): 5 Height (Inches): 9.00 Weight (Pounds): 180 General Appearance: WD/WN Neck: supple Cardiovascular: regular rhythm Respiratory/Chest: chest wall non-tender, normal breath sounds Abdomen: normal bowel sounds, non tender, soft, no organomegaly Edema: no edema noted Arm (L), no edema noted Arm (R), no edema noted Leg (L), no edema noted Leg (R) Assessment/Plan Status: stable Assessment/Plan: cont current rx conrt ivf follow up tomorrow [facility] screening dc tomorrow Shelton Enriquez MD Dec 29, 2019 15:33
[2019-12-29 16:00] VITALS: BP 152/94
--- NOTE | 2019-12-29 16:40 | NUR ---
NURSE NOTES: Patient reports he is having trouble seeing (reading words off of the signs hanging on the wall from across the room, saying he needs glasses), states, "This is new, I never had any issues with my vision in the past", detailed message left, awaiting on Dr. Enriquez to call back.
--- NOTE | 2019-12-29 19:12 | NUR ---
NURSE HAND-OFF: Important Events on Shift:Hydrogen Peroxide order for left thumb nail bed Patient Status: stable Diet: Regular Pending Orders: none Pending Results/Labs:none Pending MD notification:Patient reports he is having trouble seeing (reading words off of the signs hanging on the wall from across the room, saying he needs glasses), awaiting on Dr. Enriquez call back. Latest Vital Signs: Temperature 98.2 , Pulse 60 , B/P 152 /94 , Respiratory Rate 20 , O2 SAT 100 , Room Air, O2 Flow Rate . Vital Sign Comment: none Latest Medina Fall Score: 20 Fall Risk: Low Risk Safety Measures: Call light Within Reach, Bed Alarm , Side Rails Side Rails x2, Bed position Low and Locked. Fall Precautions: Yellow Socks Door Sign Patient Fall Education Report given to Mckayla NAGY.
--- NOTE | 2019-12-29 19:48 | General Progress Note ---
Subjective Allergies: Coded Allergies: No Known Allergies (Unverified , 12/07/11) Subjective wants more IV hydration wants to leave Monday Objective Last 24 Hour Vital Signs Date Time Temp Pulse Resp B/P (MAP) Pulse Ox O2 Delivery O2 Flow Rate FiO2 12/29/19 16:00 98.2 60 20 152/94 (113) 100 12/29/19 12:00 98.3 71 20 147/93 (111) 96 12/29/19 09:00 Room Air 12/29/19 08:00 98.3 80 20 141/90 (107) 98 12/29/19 04:00 97.9 77 19 148/83 (104) 96 12/28/19 21:00 Room Air 12/28/19 20:00 97.7 69 18 134/90 (105) 98 Intake and Output 12/28/19 12/29/19 19:00 07:00 Intake Total 1370 ml 600 ml Balance 1370 ml 600 ml Intake Oral 670 ml 500 ml IV Total 700 ml 100 ml # Voids 3 3 # Bowel Movements 1 Height (Feet): 5 Height (Inches): 9.00 Weight (Pounds): 180 Objective WDWN NCAT supple CTA RRR abd Soft no edema Assessment/Plan Status: stable Assessment/Plan: Assessment Constipation - resolved vague abdominal complaints minimal anemia syncope vs presyncope Recommendations laxatives PRN push po OK for discharge from GI standpoint outpatient colonoscopy - patient advised to see PMD as outpatient to set up Aurelio Canseco MD Dec 29, 2019 19:48
[2019-12-29 20:00] VITALS: BP 134/77
--- NOTE | 2019-12-30 02:51 | NUR ---
NURSES NOTE: Pt in bed, A/OX4, denies pain currently. No outward s/s of distress noted. Breathing is even and unlabored on 1999 VS check within normal limits. IV R FA in place, infusing IVF without incident. Skin intact. No c/o dizziness. All due medications will be administered. Bed at lowest level. Call light within reach. Pt will continue to be monitored.
[2019-12-30] MEDS: Piperacillin/Tazobactam 3.375 GM in NS 110 ML IVPB SCH ×2 (03:00→09:20)
[2019-12-30 04:00] VITALS: BP 133/76
[2019-12-30] MEDS: D5NS 1,000 ML IV SCH (05:57)
--- NOTE | 2019-12-30 06:18 | Diagnostic Imaging Report ---
EXAM: CT Head Without Intravenous Contrast CLINICAL HISTORY: DIZZY TECHNIQUE: Axial computed tomography images of the head/brain without intravenous contrast. CTDI is 53.40 mGy and DLP is 1072.20 mGy-cm. One or more of the following dose reduction techniques were used: automated exposure control, adjustment of the mA and/or kV according to patient size, use of iterative reconstruction technique. COMPARISON: No relevant prior studies available. FINDINGS: No acute intracranial hemorrhage. No midline shift or mass effect. The territorial moise-white matter differentiation is maintained throughout. The ventricles and sulci are commensurate with age. The visualized orbits appear grossly unremarkable. The calvarium is intact. Mucus retention cysts in the bilateral maxillary sinuses. The remaining visualized paranasal sinuses and mastoid air cells are grossly clear. IMPRESSION: No acute intracranial hemorrhage, midline shift, or mass effect.
--- NOTE | 2019-12-30 07:30 | NUR ---
NURSE NOTES: Patient lying in bed awake. No complain of pain or distress at this time. IV dressing intact and dry. Bed lowest position. Call light within reach. Will continue to monitor.
[2019-12-30 08:00] VITALS: BP 146/95
--- NOTE | 2019-12-30 08:00 | Discharge Summary ---
DATE OF ADMISSION: 12/27/2019 ADMISSION DIAGNOSES: Dehydration and dizziness. DISCHARGE DIAGNOSES: Dehydration and dizziness. HOSPITAL COURSE: The patient was admitted because he felt dizzy. He was noted to be dehydrated on labs. He was admitted and hydrated. He had a head CT that was negative. Dizziness resolved. He did have a CT scan of the abdomen that showed questionable colitis, but he had no symptoms of diarrhea. In fact, he has mild constipation. He has been instructed to follow up with his PMD, and he will be scheduled for an outpatient screening colonoscopy because of his family history. The patient was in understanding of this. DISCHARGE MEDICATIONS: Please see discharge medication list for discharge medications. DIET: Regular diet. ACTIVITY: Ad mohan. Shelton Enriquez M.D. DR: Emily JOB#: [id number] CC:
--- NOTE | 2019-12-30 08:02 | NUR ---
NURSE HAND-OFF: Important Events on Shift:[NONE] Patient Status: [STABLE] Diet: [REGULAR] Pending Orders: [D/C] Pending Results/Labs:[NONE] Pending MD notification:[NONE] Latest Vital Signs: Temperature 98.0 , Pulse 64 , B/P 133 /76 , Respiratory Rate 17 , O2 SAT 99 , Room Air, O2 Flow Rate . Vital Sign Comment: [WNL] Latest Medina Fall Score: 20 Fall Risk: Low Risk Safety Measures: Call light Within Reach, Bed Alarm , Side Rails Side Rails x2, Bed position Low and Locked. Fall Precautions: Patient Fall Education Report given to [YAKOV LOYD].
[2019-12-30] MEDS: Hydrogen Peroxide 473ml Bottle TOPIC SCH (09:20)
[2019-12-30] MEDS: Heparin 5000 units/ml inj SUBQ SCH (09:22)
[2019-12-30] MEDS ORDERED: D5NS 1000ml IV ONE (10:04)
--- NOTE | 2019-12-30 10:05 | NUR ---
NURSE NOTES: Patient discharged in stable condition. Discharge instruction given to patient and verbalized understanding. IV and ID removed. Belonging checked. Patient stated that he brought blue bicycle with black seat and ER nurse Helen RN will lock the bicycle in front of ER. The bicycle not listed on belonging list. Went down to entrance but no bicycle found. Asked Security and ER bilingual medical receptionist but they don't know about bicycle. Patient left phone number . Offered transportation but patient refused. Nursing supervisor felling bucking and director notified. Patient ambulated out steady gait.
--- NOTE | 2019-12-30 13:04 | NUR ---
CASE MANAGEMENT:REVIEW 12/29/19 SI: COLITIS. DEHYDRATION 98.3 80 20 141/90 98% ON RA IS: IV FLAGYL Q8HRS IV ZOSYN Q8HRS IVF@100/HR HEPARIN SQ Q12 : MED/SURG STATUS 3 EAST 12/30/19 DISCHARGE HOME TODAY
== END 2019-12-30 10:05 | disposition home or self-care (01) | DRG 249 ==
LOC: EMR 06:48 → 2E 07:41 → EDBEDREQ 07:44 → 3E 12-28 11:46
DX: E86.0 Dehydration (principal); K52.9 Noninfective gastroenteritis and colitis, unspecified; K59.00 Constipation, unspecified; R55 Syncope and collapse
CPT/HCPCS: 36415; 70450; 71045; 71250; 74176; 80053; 80307; 81003; 82378; 83690; 83880; 84153; 84484; 85025; 87324; 93005; 96361; 96365; 99285; J7030; U0002